=== PATIENT | male | born 1970 | race African-American/Black ===

== ENCOUNTER 2017-10-16 09:29 | Emergency (ER) | payer OTHER ==
[2017-10-16 09:35] VITALS: BP 174/105
[2017-10-16] MEDS ORDERED: OXYCODONE HCL IR 5 MG TABLET PO ONE (09:47)
--- NOTE | 2017-10-16 09:50 | ER Document Report ---
ED Medical Screen (RME) - General Chief Complaint: Shoulder Injury Stated Complaint: ARM/SHOULDER PAIN Time Seen by Provider: 10/16/17 09:47 Mode of Arrival: Ambulatory Information source: Patient Notes: This is a 47-year-old man who fell back coming down the stairs and presents with right arm pain. He has had dislocations of the left shoulder and is concerned that he is got a dislocation of the right shoulder. TRAVEL OUTSIDE OF THE [place] IN LAST 30 DAYS: No - HPI Onset: Just prior to arrival Onset/Duration: Sudden Quality of pain: Dull Severity: Moderate Pain Level: 3 Associated Symptoms: denies: Chest pain, Shortness of breath Exacerbated by: Movement Relieved by: Remaining still Similar symptoms previously: Yes Recently seen / treated by doctor: No - Related Data Smoking: Non-smoker Frequency of alcohol use: None Drug Abuse: None Allergies/Adverse Reactions: No Known Allergies Allergy (Verified 10/16/17 09:29) Past Medical History - General Information source: Patient - Social History Cigarette use (# per day): No Chew tobacco use (# tins/day): No Frequency of alcohol use: None Drug Abuse: None Lives with: Family Family history: None - Medical History Medical History: Negative Pulmonary Medical History: Reports: Hx Asthma Renal/ Medical History: Denies: Hx Peritoneal Dialysis Past Surgical History: Reports: Hx Orthopedic Surgery - knee surgery - Immunizations Hx Diphtheria, Pertussis, Tetanus Vaccination: Yes Review of Systems - Review of Systems Constitutional: denies: Chills, Fever EENT: No symptoms reported Cardiovascular: denies: Chest pain, Palpitations, Syncope, Lightheaded Respiratory: No symptoms reported Gastrointestinal: No symptoms reported Genitourinary: No symptoms reported Male Genitourinary: No symptoms reported Musculoskeletal: See HPI Skin: No symptoms reported Hematologic/Lymphatic: No symptoms reported Neurological/Psychological: No symptoms reported Physical Exam - Vital signs Vitals: Temp Pulse Resp BP Pulse Ox 98.0 F 73 16 174/105 H 99 10/16/17 09:33 10/16/17 09:33 10/16/17 09:33 10/16/17 09:33 10/16/17 09:33 Notes: Physical exam: GENERAL: The 7-year-old man, alert and oriented 3, no acute distress. He is holding his right arm complaining of right shoulder pain. HEAD: Atraumatic, normocephalic. EYES: Pupils equal round and reactive to light, extraocular movements intact, sclera anicteric, conjunctiva are normal. ENT: TMs normal, nares patent, oropharynx clear without exudates. Moist mucous membranes. NECK: Normal range of motion, supple without obvious mass or JVD. LUNGS: Breath sounds clear to auscultation bilaterally and equal. No wheezes rales or rhonchi. HEART: Regular rate and rhythm without murmurs, rubs or gallops. ABDOMEN: Soft, normoactive bowel sounds. No tenderness to palpation. No guarding, no rebound. No masses appreciated. EXTREMITIES: The patient is holding his right upper extremity with the elbow at 90. He complains of right shoulder pain. There is pain with range of motion but no obvious deformity. He does have pain over the shoulder joint. He does not have any pain over the humerus. He has full range of motion without pain at the elbow and wrist. He has good pulses. He has good sensation over the deltoid. Wrist extension is intact. Thumb-index finger strength is strong. NEUROLOGICAL: Cranial nerves II through XII grossly intact. Normal speech, moving all extremities. PSYCH: Normal mood, normal affect. SKIN: Warm, Dry, normal turgor, no rashes or lesions noted. Course - Re-evaluation Re-evalutation: 10/16/17 11:01 I did discuss with patient regarding elevated blood pressure and I have advised him to follow-up at the [facility] with a repeat blood pressure check. Otherwise, I am referring him back to orthopedics for possible rotator cuff injury. The joint itself does not appear dislocated and the x-ray show no fracture or dislocation. Will treat with sling, ice, ibuprofen, oxycodone. - Vital Signs Vital signs: Temp Pulse Resp BP Pulse Ox 98.0 F 73 16 174/105 H 99 10/16/17 09:33 10/16/17 09:33 10/16/17 09:33 10/16/17 09:33 10/16/17 09:33 - Diagnostic Test Radiology reviewed: Image reviewed, Reports reviewed - No acute dislocation or fracture Doctor's Discharge - Discharge Clinical Impression: Right shoulder injury Condition: Stable Disposition: HOME, SELF-CARE Instructions: Oral Narcotic Medication ([facility]), Pain Medication Injection ([facility]), Sling as Treatment ([facility]) Additional Instructions: As we discussed, the x-rays show no evidence of dislocation. He could have dislocated and relocated. The other concern is that she could have a rotator cuff tear. I will take ibuprofen every 6 hours for the next few days. Ice several times a day for the next 2 days. Take the oxycodone as needed for pain. Follow-up with an orthopedic surgeon: I put the number for one on the chart. Return to the emergency room for worsening pain or any concerns or getting worse. As we discussed, your blood pressure was elevated. While this can be from pain alone, I recommend you have it recheck[facility]. The pain medicine you're taking prescribed as a narcotic. There are several important things you should know about this medicine: 1. Taking narcotics for too long can lead to physical and mental dependence. Take this medicine only if really needed and in the lowest quantity to achieve pain relief. 2. Do not drink alcohol while on this medicine. Alcohol interacts with narcotics and the combination can be dangerous. 3. Do not drive or operate machinery while on this medicine. 4. Narcotics do cause constipation, so drink plenty of fluids and daily stool softeners. Prescriptions: Oxycodone HCl 5 mg PO Q6HP PRN #25 tablet PRN Reason: Forms: Elevated Blood Pressure Referrals: MARA PEREZ MD [ACTIVE STAFF] - Follow up as needed (This is the number the orthopedic doctor)
[2017-10-16] MEDS ORDERED: KETOROLAC TROMETHAMINE 60 MG/2 ML SDV IM ONE (09:53)
--- NOTE | 2017-10-16 10:13 | RADIOLOGY REPORT (SQ) ---
EXAM DESCRIPTION: SHOULDER RIGHT 2 OR MORE VIEWS COMPLETED DATE/TIME: 10/16/2017 10:06 am REASON FOR STUDY: pain after fall COMPARISON: None. NUMBER OF VIEWS: Three views. TECHNIQUE: Internal rotation, external rotation, and Y view images acquired of the right shoulder. LIMITATIONS: None. FINDINGS: MINERALIZATION: Normal. BONES: No acute fracture or dislocation. Deformity of the humeral head, likely a chronic Hill-Sachs lesion. No worrisome bone lesions. JOINTS: No dislocation. VISUALIZED LUNGS AND RIBS: No pneumothorax. No rib fracture. SOFT TISSUES: No radiopaque foreign body. OTHER: No other significant finding. IMPRESSION: CHRONIC CHANGES. NO RADIOGRAPHIC EVIDENCE OF ACUTE INJURY. TECHNICAL DOCUMENTATION: JOB ID: [id number] [employer]- All Rights Reserved Reading location - IP/workstation name: [email or web address]
== END 2017-10-16 10:32 | disposition home or self-care (01) ==
LOC: ER 09:29
DX: S49.91XA Unspecified injury of right shoulder and upper arm, initial encounter (principal); M79.601 Pain in right arm; R03.0 Elevated blood-pressure reading, without diagnosis of hypertension; W10.9XXA Fall (on) (from) unspecified stairs and steps, initial encounter; J45.909 Unspecified asthma, uncomplicated
CPT/HCPCS: 99283; 96372; 73030; J1885

== ENCOUNTER 2018-01-03 08:00 | Day surgery (SDC) | payer OTHER ==
[2018-01-02 09:22] LABS: HEMATOCRIT 39.5 % (37.9-51.0); HEMOGLOBIN 13.4 g/dL (13.5-17.0); MEAN CORPUSCULAR HEMOGLOBIN 30.9 pg (27.0-33.4); MEAN CORPUSCULAR HGB CONC 33.9 g/dL (32.0-36.0); MEAN CORPUSCULAR VOLUME 91 fl (80-97); PLATELET COUNT 289 10^3/uL (150-450); RED BLOOD COUNT 4.33 10^6/uL (4.35-5.55); WHITE BLOOD COUNT 3.2 10^3/uL (4.0-10.5)
[2018-01-03] MEDS ORDERED: PROPOFOL INJ 200 MG/20 ML VIAL IV ONE ×2 (09:42→11:44)
[2018-01-03] MEDS ORDERED: MIDAZOLAM 2 MG/2 ML INJ ONE (10:50)
[2018-01-03] MEDS ORDERED: PROMETHAZINE HCL INJ 25 MG/1 ML VIAL IV PRN ×2 (11:05)
[2018-01-03] MEDS ORDERED: DIPHENHYDRAMINE HCL 50 MG/ML VIAL IV PRN (11:05)
[2018-01-03] MEDS ORDERED: FENTANYL CITRATE INJ/PF 100 MCG/2 ML AMPUL IV PRN ×3 (11:05)
--- NOTE | 2018-01-03 11:41 | Discharge Summary ---
Discharge Summary (SDC) - Discharge Final Diagnosis: Colon polyps Date of Surgery: 01/03/18 Discharge Date: 01/03/18 Condition: Stable Referrals: ABDIAS APARICIO MD [Primary Care Provider] - Respiratory Treatments at Home: Deep Breathing/Coughing, Incentive Spirometer Discharge Activity: Activity As Tolerated Home Care Assistance: None Needed Report the Following to Your Physician Immediately: Shortness of Breath, Nausea , Vomiting, Increase in Pain, Fever over 101 Degrees, Unusual Bleeding
--- NOTE | 2018-01-03 11:45 | Operative Report ---
Nonrecallable Operative Report DATE OF SURGERY: 01/03/18 PREOPERATIVE DIAGNOSIS: Rectal bleeding POSTOPERATIVE DIAGNOSIS: 1. No obvious source of rectal bleeding, or rectal mass. 2. Small colon polyps OPERATION: 1. Colonoscopy to the cecum. 2. Hot biopsy of colon polyp 2 SURGEON: WILLIE MARTÍNEZ ANESTHESIA: LMAC TISSUE REMOVED OR ALTERED: 1. Colon polyp at 70 cm. 2. Colon polyp at 30 cm COMPLICATIONS: None apparent ESTIMATED BLOOD LOSS: Minimal PROCEDURE: Procedure in detail: After informed consent was obtained, the patient was laid in the left lateral decubitus position in the operating room. The endoscope was passed up the rectum, sigmoid colon, descending colon, across the transverse colon, down the ascending colon, and into the cecum. The ileocecal valve and appendiceal orifice were identified. The scope was then withdrawn, circumferentially noting the mucosa. The prep was fair. Multiple washings and suctioning were required in order to visualize the entirety of the mucosa. This was successful. The scope was withdrawn past the ascending colon, transverse colon, down the descending colon. At approximately 70 cm a small diminutive polyp was identified. It was removed via hot biopsy forceps. The scope was withdrawn down the sigmoid colon. At approximately 30 cm another small polyp was identified and removed via hot biopsy forceps. The scope was withdrawn into the rectum. A retroflexion maneuver was performed, noting no internal hemorrhoids. The scope was straightened, air was suctioned from the rectum, the scope was removed, and the procedure was concluded. All sponge, instrument, and needle counts were correct 2. Condition: Stable.
[2018-01-03 14:22] VITALS: BP 165/90
== END 2018-01-03 13:39 | disposition home or self-care (01) ==
LOC: OROUT 08:00
PROVIDERS: ATTEND Surgery
DX: D12.6 Benign neoplasm of colon, unspecified (principal); K62.5 Hemorrhage of anus and rectum; K40.21 Bilateral inguinal hernia, without obstruction or gangrene, recurrent; Z87.19 Personal history of other diseases of the digestive system; J45.909 Unspecified asthma, uncomplicated; I10 Essential (primary) hypertension; Z79.51 Long term (current) use of inhaled steroids
CPT/HCPCS: 45384; 36415; 85027; 88305 ×2; 94640; J2250; J2704; 811

== ENCOUNTER 2018-03-17 05:38 | Day surgery (SDC) | payer OTHER ==
[2018-03-10 11:49] LABS: HEMATOCRIT 33.4 % (37.9-51.0); HEMOGLOBIN 10.8 g/dL (13.5-17.0); MEAN CORPUSCULAR HEMOGLOBIN 27.6 pg (27.0-33.4); MEAN CORPUSCULAR HGB CONC 32.4 g/dL (32.0-36.0); MEAN CORPUSCULAR VOLUME 85 fl (80-97); PLATELET COUNT 373 10^3/uL (150-450); RED BLOOD COUNT 3.92 10^6/uL (4.35-5.55); RED CELL DISTRIBUTION WIDTH 15.4 % (11.5-14.0)
[~2018-03-17 05:38] MED LIST: ACETAMINOPHEN 325 MG TABLET PO PRN; CEFAZOLIN 2 GM/D5W RTU 2 GM/50 ML RTUPB IV ONE; CEFAZOLIN 2 GM/D5W RTU 2 GM/50 ML RTUPB IV PRN; LACTATED RINGERS 1000 ML IV PRN
[2018-03-17] MEDS ORDERED: BUPIVACAINE HCL 0.5 % INJ/PF 30 ML SDV ONE (06:42)
[2018-03-17] MEDS ORDERED: FENTANYL CITRATE INJ/PF 100 MCG/2 ML AMPUL ONE ×2 (06:47→10:35)
[2018-03-17] MEDS ORDERED: HYDROMORPHONE HCL INJ/PF 2 MG/ML AMPULE ONE ×2 (06:47→10:16)
[2018-03-17] MEDS ORDERED: ONDANSETRON HCL INJ/PF 4 MG/2 ML SDV ONE ×2 (06:47→12:11)
[2018-03-17] MEDS ORDERED: PROPOFOL INJ 200 MG/20 ML VIAL IV ONE (06:47)
[2018-03-17] MEDS ORDERED: DEXAMETHASONE SOD PHOSPHATE INJ 4 MG/1 ML VIAL ONE (06:47)
[2018-03-17] MEDS ORDERED: ACETAMINOPHEN 1,000 MG/100 ML RTUPB IV ONE (06:47)
[2018-03-17] MEDS ORDERED: MIDAZOLAM 2 MG/2 ML INJ ONE (06:47)
[2018-03-17] MEDS ORDERED: METOPROLOL TARTRATE PF/INJ 5 MG/5 ML SDV IV ONE (08:23)
[2018-03-17] MEDS ORDERED: PROMETHAZINE HCL INJ 25 MG/1 ML VIAL IV PRN (08:26)
[2018-03-17] MEDS ORDERED: ONDANSETRON HCL INJ/PF 4 MG/2 ML SDV IV PRN (08:26)
[2018-03-17] MEDS ORDERED: MORPHINE SULFATE 10 MG/ML INJ IV PRN (08:26)
[2018-03-17] MEDS ORDERED: MEPERIDINE HCL/PF INJ 25 MG/1 ML DISP.SYRIN IV PRN (08:26)
[2018-03-17] MEDS ORDERED: LABETALOL HCL INJ 20 MG/4 ML DISP.SYRIN IV PRN (08:26)
[2018-03-17] MEDS ORDERED: DIPHENHYDRAMINE HCL 50 MG/ML VIAL IV PRN (08:26)
[2018-03-17] MEDS ORDERED: FENTANYL CITRATE INJ/PF 100 MCG/2 ML AMPUL IV PRN ×3 (08:26)
--- NOTE | 2018-03-17 10:30 | Discharge Summary ---
Discharge Summary (SDC) - Discharge Final Diagnosis: bilateral recurrent inguinal hernia Date of Surgery: 03/17/18 Discharge Date: 03/17/18 Condition: Stable Treatment or Instructions: Discharge home. Diet as tolerated. Activity: No lifting greater than 10 pounds x 4 weeks. [place] 10/325 mg p.o. every 6 hours as needed pain. Ibuprofen as needed for breakthrough pain. Follow-up with me in 7-10 days. Referrals: ABDIAS APARICIO MD [Primary Care Provider] - Discharge Diet: As Tolerated Respiratory Treatments at Home: Deep Breathing/Coughing, Incentive Spirometer Discharge Activity: No Lifting Over 10 Pounds Home Care Assistance: None Needed Report the Following to Your Physician Immediately: Shortness of Breath, Nausea , Vomiting, Increase in Pain, Fever over 101 Degrees, Unusual Bleeding, Redness
--- NOTE | 2018-03-17 10:42 | Operative Report ---
Nonrecallable Operative Report DATE OF SURGERY: 03/17/18 PREOPERATIVE DIAGNOSIS: bilateral recurrent inguinal hernia POSTOPERATIVE DIAGNOSIS: 1. Left-sided direct and indirect recurrent inguinal hernia. 2. Right-sided indirect inguinal and femoral recurrent hernia. OPERATION: Robot-assisted bilateral laparoscopic inguinal hernia repair with mesh. SURGEON: WILLIE FLOOD STEEL ERECTOR APPRENTICE: PING SOLITARIO ANESTHESIA: [place] TISSUE REMOVED OR ALTERED: None COMPLICATIONS: None apparent ESTIMATED BLOOD LOSS: Minimal PROCEDURE: Drains/implants: Right sided large and left sided large 3 DMax inguinal hernia mesh. Procedure in detail: After informed consent was obtained, the patient was brought into the operating room and laid in the supine position. The area of the abdomen was prepped and draped in a normal sterile fashion. A supraumbilical incision was created with a 15 blade scalpel. Dissection was carried through the subcutaneous tissue using blunt means. The linea alba fascia was incised sharply, the abdomen was entered sharply. The balloon trocar was inserted and pneumoperitoneum was achieved. Two 8 mm robotic trochars were placed in the right and left lateral abdominal wall. This was done under direct laparoscopic visualization. The robot was then brought over the patient and docked appropriately. I assumed my position at the surgeon's console. Attention was turned to the left groin. There were adhesions of the sigmoid colon to the left peritoneal cavity. These were lysed sharply the sigmoid colon was reduced posteriorly. An incision was then created in the peritoneum, superior to the inguinal hernia defect. Dissection was carried out in the preperitoneal plane using sharp and blunt means. The inguinal hernia defect was found to lie in the direct and indirect space. There was a previous mesh placed from an open procedure. There was a small amount of adherence of the peritoneum to the mesh, however the peritoneum was easily freed. It was not felt that removal of the mesh would be required. The hernia sac was freed from the cord structures carefully, so as not to injure the cord structures. Once the dissection was completed, a large left-sided 3 DMax inguinal hernia mesh was placed into the preperitoneal space. It was sutured medially and superiorly using 2-0 Vicryl suture. The peritoneum was then closed using 2-0 V lock suture in simple running fashion. Attention was then turned to the right groin. The peritoneum was scored 2-3 cm superior to the right inguinal hernia defect. Dissection was carried out in the preperitoneal space using sharp and blunt means. The hernia sac was freed from the cord structures. There was a recurrent indirect inguinal hernia as well as a small femoral hernia. After the sac was freed, a large right-sided 3D max inguinal hernia mesh was placed in the preperitoneal space. It was situated over the defects. It was sutured medially superiorly. The dissection was performed very carefully, so as not to injure the cord structures. Once the mesh was found to lie in good position, the peritoneum was closed using 2-0 V lock suture in simple running fashion. The robot was then undocked and I scrubbed back into the case. The camera was reinserted and the hernia repairs were found to be in good order. Once this was confirmed, the 8 mm trochars were removed under direct laparoscopic visualization. The 12 mm trocar was removed, and pneumoperitoneum was relieved. The supraumbilical fascia was closed using 0 Vicryl suture in [id number] fashion. The overlying skin was closed using 4-0 Vicryl Rapide suture in subcuticular fashion. Dressings were placed, and the procedure was concluded. All sponge, instrument, and needle counts were correct x2. Ping Solitario PA-C was scrubbed and present the entirety of the procedure. She assisted with all portions of procedure including placement of the trochars , docking of the robot, exchanging of the instruments, insertion of the mesh, closure of the fascia, and closure of the skin. Condition: Stable.
[2018-03-17] MEDS ORDERED: HYDROCODONE/ACETAMINOPHEN 10-325 MG TABLET ONE (11:18)
[2018-03-17 12:56] VITALS: BP 131/85
[2018-03-17] MEDS ORDERED: LIDOCAINE 2% INJ-PF (20 MG/ML) 2 ML AMPUL ONE (15:59)
[2018-03-17] MEDS ORDERED: KETOROLAC TROMETHAMINE 60 MG/2 ML SDV ONE (15:59)
[2018-03-17] MEDS ORDERED: SUCCINYLCHOLINE CHLORIDE INJ 200 MG/10 ML VIAL ONE (15:59)
[2018-03-17] MEDS ORDERED: ROCURONIUM BROMIDE INJ 50 MG/5 ML VIAL IV ONE (15:59)
== END 2018-03-17 12:10 | disposition home or self-care (01) ==
LOC: OROUT 05:38
PROVIDERS: ATTEND Surgery
DX: K40.21 Bilateral inguinal hernia, without obstruction or gangrene, recurrent (principal); J45.909 Unspecified asthma, uncomplicated; Z79.51 Long term (current) use of inhaled steroids; Z79.899 Other long term (current) drug therapy
CPT/HCPCS: 86900; 86901; 36415 ×2; 86850; 85027; 49651; C1781; J2250; J3490 ×4; J1100; J1885; J3010; J1170; J0330; J2405; J2704; J0690; J0131; S2900; 830